=== PATIENT | female | born 1990 | race Caucasian/White ===

== ENCOUNTER 2020-03-23 07:53 | Outpatient (CLI) | payer OTHER | END 2020-03-23 23:59 | disposition home or self-care (01) | LOC: EDSEX 07:53 → CFH 07:53 | PROVIDERS: ATTEND Internal Medicine Cardiovascular Disease | DX: R94.31 Abnormal electrocardiogram [ECG] [EKG] (principal); R06.02 Shortness of breath | CPT/HCPCS: 93306; 93356 ==

== ENCOUNTER 2020-05-05 05:30 | Inpatient (IN) | payer OTHER ==
[~2020-05-05] VITALS: Ht 170.2 cm; Wt 99.1 kg
[2020-05-05 05:45] VITALS: BP 116/80
[2020-05-05] MEDS ORDERED: D5%-LACTATED RINGERS 1,000 ML IV SCH (06:32)
[2020-05-05] MEDS ORDERED: OXYTOCIN 30U/ 0.9% NaCL 500ML 500 ML IV ONE (06:32)
[2020-05-05] MEDS: LACTATED RINGERS 1,000 ML IV SCH ×2 (06:45→14:02)
[2020-05-05] MEDS ORDERED: TERBUTALINE 1 MG/ML, 1ML IVPush PRN (07:00)
[2020-05-05] MEDS ORDERED: ONDANSETRON 2MG/ML, 2ML IVPush PRN (07:00)
[2020-05-05] MEDS ORDERED: FENTANYL PF 100 MCG/2ML IV PRN (07:00)
[2020-05-05] MEDS ORDERED: CALCIUM CARBONATE 500 MG TAB.CHEW PO PRN (07:00)
[2020-05-05] MEDS ORDERED: TERBUTALINE 1 MG/ML, 1ML SQ PRN (07:00)
[2020-05-05] MEDS ORDERED: FENTANYL PF 100 MCG/2ML IVPush PRN (07:00)
[2020-05-05 07:18] LABS: BASOPHILS # (AUTO) 0.03 x10^3/uL (0-0.1); BASOPHILS % (AUTO) 0 % (0-1); EOSINOPHILS # (AUTO) 0.06 x10^3/uL (0-0.4); EOSINOPHILS % (AUTO) 1 % (1-7); LYMPHOCYTES % (AUTO) 20 % (22-44); MD NO; MEAN CORPUSCULAR HEMOGLOBIN 30.7 pg (27.0-34.8); MEAN CORPUSCULAR HGB CONC 33.3 g/dL (32.4-35.8); MEAN CORPUSCULAR VOLUME 92.1 fL (80-100); MEAN PLATELET VOLUME 7.4 fL (7.4-10.4); MONOCYTES # (AUTO) 0.66 x10^3/uL (0.2-0.8); MONOCYTES % (AUTO) 7 % (2-9); NEUTROPHILS # (AUTO) 6.42 x10^3/uL (1.8-6.8); NEUTROPHILS % (AUTO) 72 % (42-75); PLATELET COUNT 365 x10^3/uL (130-400); RED CELL DISTRIBUTION WIDTH 12.6 % (9.6-15.2)
[2020-05-05] MEDS ORDERED: FENTANYL/BUPIV./NS/PF 250 ML EPIDCONT SCH (07:55)
[2020-05-05] MEDS ORDERED: LACTATED RINGERS 1,000 ML IVBOLUS PRN (08:00)
[2020-05-05] MEDS ORDERED: MISOPROSTOL 25 MCG TABLET VG PRN (08:00)
[2020-05-05] MEDS ORDERED: LIDOCAINE 1%, 20ML ONE (08:11)
[2020-05-05] MEDS ORDERED: OXYTOCIN 30U/ 0.9% NaCL 500ML 500 ML ONE (08:11)
[2020-05-05] MEDS ORDERED: MISOPROSTOL 200 MCG TABLET ONE (08:11)
[2020-05-05] MEDS ORDERED: MISOPROSTOL 25 MCG TABLET ONE ×3 (08:11→16:48)
[2020-05-05] MEDS ORDERED: NEWBORN KIT ONE (08:11)
[2020-05-05] MEDS ORDERED: BETAMETHASONE 6 MG/ML, 5ML IM ONE (08:14)
[2020-05-05] MEDS: BETAMETHASONE 6 MG/ML, 5ML IM SCH (08:27)
[2020-05-05] MEDS: MISOPROSTOL 25 MCG TABLET PO PRN ×3 (08:28→17:30)
[2020-05-05] MEDS: CEFAZOLIN PMX 1GM/50ML 50 ML IVPB SCH ×2 (08:55→16:58)
[2020-05-05] MEDS ORDERED: OXYTOCIN 30U/ 0.9% NaCL 500ML 500 ML IV PRN (21:26)
[2020-05-05] MEDS: CITALOPRAM 20 MG TABLET PO SCH (21:33)
[2020-05-06] MEDS ORDERED: FENTANYL PF 100 MCG/2ML ONE ×2 (00:14→01:33)
[2020-05-06] MEDS: CEFAZOLIN PMX 1GM/50ML 50 ML IVPB SCH ×2 (00:16→08:31)
[2020-05-06] MEDS ORDERED: FENTANYL/BUPIV./NS/PF 250 ML EPIDCONT ONE ×2 (01:25→01:35)
[2020-05-06] MEDS ORDERED: BUPIVACAINE 0.25% ONE ×2 (01:33→01:35)
[2020-05-06] MEDS ORDERED: LIDOCAINE/PF 1.5%-EPI 1:200K, 30ML ONE (01:35)
[2020-05-06] MEDS: LACTATED RINGERS 1,000 ML IV SCH ×3 (02:29→08:26)
[2020-05-06] MEDS ORDERED: EPHEDRINE 50 MG/ML, 1ML ONE (04:49)
[2020-05-06] MEDS: EPHEDRINE 50 MG/ML, 1ML IVPush PRN ×2 (05:10→05:11)
[2020-05-06] MEDS: BETAMETHASONE 6 MG/ML, 5ML IM SCH (08:26)
[2020-05-06] MEDS: OXYTOCIN 30U/ 0.9% NaCL 500ML 500 ML IV SCH (15:42)
[2020-05-06] MEDS ORDERED: ACETAMINOPHEN 325 MG TABLET PO PRN (16:00)
[2020-05-06] MEDS ORDERED: OXYcodone IR 5MG TABLET PO PRN (16:00)
[2020-05-06] MEDS ORDERED: MISOPROSTOL 200 MCG TABLET PR PRN (16:00)
[2020-05-06] MEDS ORDERED: SIMETHICONE 80 MG CHEW TAB PO PRN (16:00)
[2020-05-06] MEDS ORDERED: ONDANSETRON 2MG/ML, 2ML IV PRN (16:00)
[2020-05-06] MEDS ORDERED: DEXTROSE 47%, 15GM GEL ONE (17:03)
[2020-05-06] MEDS ORDERED: IBUPROFEN 600 MG TABLET ONE (17:33)
[2020-05-06] MEDS ORDERED: OXYcodone/APAP 5/325MG TABLET ONE (17:34)
[2020-05-06] MEDS: IBUPROFEN 600 MG TABLET PO PRN (17:35)
[2020-05-06] MEDS: OXYcodone/APAP 5/325MG TABLET PO PRN (17:36)
[2020-05-06 17:45] VITALS: BP 124/70
[2020-05-06 20:00] VITALS: BP 117/73
[2020-05-06] MEDS: CITALOPRAM 20 MG TABLET PO SCH (21:00)
[2020-05-07 00:30] VITALS: BP 115/75
[2020-05-07] MEDS: OXYTOCIN 30U/ 0.9% NaCL 500ML 500 ML IV SCH ×3 (01:42→21:42)
[2020-05-07 04:30] VITALS: BP 118/74
[2020-05-07 06:58] LABS: BASOPHILS # (AUTO) 0.02 x10^3/uL (0-0.1); BASOPHILS % (AUTO) 0 % (0-1); EOSINOPHILS # (AUTO) 0.01 x10^3/uL (0-0.4); EOSINOPHILS % (AUTO) 0 % (1-7); LYMPHOCYTES # (AUTO) 2.51 x10^3/uL (1-3.4); LYMPHOCYTES % (AUTO) 18 % (22-44); MD NO; MEAN CORPUSCULAR HEMOGLOBIN 30.9 pg (27.0-34.8); MEAN CORPUSCULAR HGB CONC 33.6 g/dL (32.4-35.8); MEAN CORPUSCULAR VOLUME 92.1 fL (80-100); MEAN PLATELET VOLUME 7.6 fL (7.4-10.4); MONOCYTES # (AUTO) 0.84 x10^3/uL (0.2-0.8); MONOCYTES % (AUTO) 6 % (2-9); NEUTROPHILS # (AUTO) 10.44 x10^3/uL (1.8-6.8); NEUTROPHILS % (AUTO) 76 % (42-75); PLATELET COUNT 349 x10^3/uL (130-400); RED BLOOD COUNT 3.61 x10^6/uL (3.82-5.3); RED CELL DISTRIBUTION WIDTH 13.5 % (9.6-15.2)
[2020-05-07 07:35] VITALS: BP 109/69
[2020-05-07] MEDS: PRENATAL VIT/IRON/FA 1 EACH TABLET PO SCH (08:41)
[2020-05-07] MEDS: DOCUSATE 100 MG CAPSULE PO PRN (08:41)
[2020-05-07] MEDS: IBUPROFEN 600 MG TABLET PO PRN (08:41)
[2020-05-07 12:00] VITALS: BP 115/79
[2020-05-07] MEDS: OXYcodone/APAP 5/325MG TABLET PO PRN (12:40)
[2020-05-07 20:00] VITALS: BP 117/70
[2020-05-07] MEDS: CITALOPRAM 20 MG TABLET PO SCH (21:00)
[2020-05-08 07:30] VITALS: BP 129/89
[2020-05-08] MEDS: DOCUSATE 100 MG CAPSULE PO PRN (09:00)
[2020-05-08] MEDS: PRENATAL VIT/IRON/FA 1 EACH TABLET PO SCH (09:00)
[2020-05-08] MEDS ORDERED: IBUP-1222 PO (13:08)
[2020-05-08 19:40] VITALS: BP 129/81
[2020-05-08] MEDS: CITALOPRAM 20 MG TABLET PO SCH (21:00)
[2020-05-08] MEDS: IBUPROFEN 600 MG TABLET PO PRN (22:48)
== END 2020-05-08 23:09 | disposition home or self-care (01) | DRG 807 ==
LOC: LDOP 05:30 → LDIP 06:32 → 2NW 05-06 17:50
PROVIDERS: ADMIT Obstetrics & Gynecology; ATTEND Obstetrics & Gynecology
PROC: 10E0XZZ Delivery of Products of Conception, External Approach (ICD-10-PCS; principal; 2020-05-06)
DX: O99.344 Other mental disorders complicating childbirth (principal); Z37.0 Single live birth; F32.9 Major depressive disorder, single episode, unspecified; O42.913 Preterm premature rupture of membranes, unspecified as to length of time between rupture and onset of labor, third trimester; Z20.828 Contact with and (suspected) exposure to other viral communicable diseases; Z88.0 Allergy status to penicillin; Z3A.35 35 weeks gestation of pregnancy; Z79.899 Other long term (current) drug therapy; Z80.3 Family history of malignant neoplasm of breast; Z80.41 Family history of malignant neoplasm of ovary; Z80.49 Family history of malignant neoplasm of other genital organs; Z82.49 Family history of ischemic heart disease and other diseases of the circulatory system
CPT/HCPCS: 36415; J3490; J7121; 84112; 85025; 86592; 86850; 86900; 87081; 87635; G0378; J0690; J0702; J3010; J2590; J7120